=== PATIENT | female | born 1950 | race Caucasian/White ===

== ENCOUNTER 2018-08-09 06:01 | Inpatient (IN) | payer MEDICARE, OTHER ==
[2018-08-09] MEDS ORDERED: GELATIN SIZE 100 SPONGE (07:30)
[2018-08-09] MEDS ORDERED: BUPIVACAINE 0.5% (SDV) 30 ML INJ (07:30)
[2018-08-09] MEDS ORDERED: TOBRAMYCIN/DEXAMETH 2.5 ML OPH (07:31)
[2018-08-09] MEDS ORDERED: HEPARIN 1000 UNITS/ML 10 ML INJ ×3 (07:31→09:55)
[2018-08-09] MEDS ORDERED: THROMBIN 5000 UNIT VIAL (07:31)
[2018-08-09] MEDS ORDERED: MIDAZOLAM 1 MG/ML 2 ML INJ (08:00)
[2018-08-09] MEDS ORDERED: FENTAnyl 50 MCG/ML VIAL ×2 (08:16→10:36)
[2018-08-09] MEDS ORDERED: IODIXANOL LOCM 50 ML BTL (08:33)
[2018-08-09] MEDS ORDERED: IODIXANOL LOCM 100 ML BTL (08:33)
[2018-08-09] MEDS ORDERED: DIPHENHYDRAMINE 50 MG INJ (08:46)
[2018-08-09] MEDS ORDERED: HYDROCORTISONE 100 MG INJ (08:47)
[2018-08-09] MEDS: HEPARIN 10,000 UNITS/ML 1 ML INJ SC (08:48)
[2018-08-09] MEDS: IOHEXOL 350 100 ML BTL IV (08:48)
[2018-08-09] MEDS ORDERED: PROTAMINE 250 MG INJ (10:44)
[2018-08-09] MEDS ORDERED: CEFAZOLIN 1 GM INJ (11:04)
[2018-08-09] MEDS ORDERED: ROCURONIUM 50 MG INJ (11:04)
[2018-08-09] MEDS ORDERED: ETOMIDATE 20 MG INJ (11:04)
[2018-08-09] MEDS ORDERED: GLYCOPYRROLATE 0.4 MG INJ (11:04)
[2018-08-09] MEDS ORDERED: LIDOCAINE 2% (SDV) 5 ML INJ (11:04)
[2018-08-09] MEDS ORDERED: NEOSTIGMINE 3 MG/3 ML SYRINGE (11:04)
[2018-08-09] MEDS ORDERED: ONDANSETRON 4 MG INJ (11:05)
[2018-08-09] MEDS ORDERED: niCARdipine 50 MG in SOD CHLORIDE 0.9% 480 ML IV ×2 (11:30→14:00)
[2018-08-09] MEDS ORDERED: morphine (1 MG/ML) 10ML SYRINGE IV (11:30)
[2018-08-09] MEDS ORDERED: ALBUTEROL 0.083% (NEB) 2.5 MG/3 ML AMP HHN (11:30)
[2018-08-09] MEDS ORDERED: DIPHENHYDRAMINE 50 MG INJ IV (11:30)
[2018-08-09] MEDS ORDERED: EPHEDrine SULFATE 50 MG/5 ML SYG IV (11:30)
[2018-08-09] MEDS ORDERED: LABETALOL HCL 20MG INJ IV (11:30)
[2018-08-09] MEDS ORDERED: hydrALAzine 20 MG INJ IV (11:30)
[2018-08-09] MEDS ORDERED: ONDANSETRON 4 MG INJ IV (11:30)
[2018-08-09] MEDS: LACTATED RINGER'S 1,000 ML IV ×2 (12:16→21:13)
[2018-08-09] MEDS: morphine 2 MG INJ IV ×3 (13:14→21:13)
[2018-08-09] MEDS ORDERED: oxyCODONE 5 MG TAB PO (14:00)
[2018-08-09] MEDS: LOSARTAN 50 MG TAB PO (14:00)
[2018-08-09] MEDS ORDERED: FUROSEMIDE 40 MG TAB PO (14:00)
[2018-08-09] MEDS: PAROXETINE 10 MG TAB PO (15:37)
[2018-08-09] MEDS: AMLODIPINE 10 MG TAB PO (15:37)
[2018-08-09] MEDS: ALBUTEROL/IPRATROPIUM (NEB) 3 ML AMP HHN ×2 (17:03→20:36)
[2018-08-09] MEDS: GABAPENTIN 400 MG CAP PO (21:13)
[2018-08-10] MEDS: ZOLPIDEM 5 MG TAB PO (00:09)
[2018-08-10] MEDS: LACTATED RINGER'S 1,000 ML IV ×2 (04:30→06:12)
[2018-08-10] MEDS: morphine 2 MG INJ IV (05:35)
[2018-08-10 06:48] LABS: ADD MAN DIFF? NO
[2018-08-10 06:58] LABS: BASOPHILS % 0.6 % (0.0-2.0); EOSINOPHILS # 0.1 10^3/ul (0.0-0.5); EOSINOPHILS % 1.5 % (0.0-7.0); HEMATOCRIT 32.1 % (37.0-47.0); HEMOGLOBIN 10.1 g/dl (12.0-16.0); LYMPHOCYTES # 1.3 10^3/ul (0.8-2.9); LYMPHOCYTES % 19.7 % (15.0-51.0); MEAN CORPUSCULAR HEMOGLOBIN 25.1 pg (29.0-33.0); MEAN CORPUSCULAR HGB CONC 31.5 g/dl (32.0-37.0); MEAN CORPUSCULAR VOLUME 79.9 fl (82.0-101.0); MEAN PLATELET VOLUME 12.2 fl (7.4-10.4); MONOCYTE # 0.6 10^3/ul (0.3-0.9); MONOCYTES % 8.6 % (0.0-11.0); NEUTROPHIL # 4.7 10^3/ul (1.6-7.5); NEUTROPHILS % 69.5 % (39.0-77.0); PLATELET COUNT 196 10^3/UL (140-415); RED BLOOD COUNT 4.02 10^6/ul (4.20-5.40); RED CELL DISTRIBUTION WIDTH 17.9 % (11.5-14.5)
[2018-08-10 06:58] LABS: WHITE BLOOD COUNT 6.7 10^3/ul (4.8-10.8)
[2018-08-10 07:39] LABS: ANION GAP 10 (5-13); BLOOD UREA NITROGEN 17 mg/dl (7-20); CALCIUM 8.7 mg/dl (8.4-10.2); CARBON DIOXIDE 22 mmol/L (21-31); CHLORIDE 110 mmol/L (97-110); CREATININE 0.53 mg/dl (0.44-1.00); Estimated GFR > 60 mL/min (>60); GLUCOSE 80 mg/dl (70-220); PHOSPHORUS 3.1 mg/dl (2.5-4.9); POTASSIUM 4.1 mmol/L (3.5-5.1); SODIUM 142 mmol/L (135-144)
[2018-08-10] MEDS: AMLODIPINE 10 MG TAB PO (09:00)
[2018-08-10] MEDS: ALBUTEROL/IPRATROPIUM (NEB) 3 ML AMP HHN (09:08)
[2018-08-10] MEDS: GABAPENTIN 400 MG CAP PO (09:10)
[2018-08-10] MEDS: LOSARTAN 50 MG TAB PO (09:10)
[2018-08-10] MEDS: PAROXETINE 10 MG TAB PO (09:11)
[2018-08-10] MEDS: HYDROmorphONE 2 MG TAB PO (09:11)
[2018-08-10] MEDS: DOCUSATE SODIUM 100 MG CAP PO (12:27)
== END 2018-08-10 13:20 | disposition home or self-care (01) | DRG 269 ==
LOC: REC 06:01 → ICU 11:18
PROC: 04V03D6 (ICD-10-PCS; principal; 2018-08-09 08:00)
PROC: B410YZZ Fluoroscopy of Abdominal Aorta using Other Contrast (ICD-10-PCS; 2018-08-09 08:00)
PROC: B440ZZ3 Ultrasonography of Abdominal Aorta, Intravascular (ICD-10-PCS; 2018-08-09 08:00)
DX: I71.4 Abdominal aortic aneurysm, without rupture (principal); E66.01 Morbid (severe) obesity due to excess calories; E78.5 Hyperlipidemia, unspecified; G89.29 Other chronic pain; I73.9 Peripheral vascular disease, unspecified; I10 Essential (primary) hypertension; J44.9 Chronic obstructive pulmonary disease, unspecified; M19.90 Unspecified osteoarthritis, unspecified site; M48.061 Spinal stenosis, lumbar region without neurogenic claudication; M54.9 Dorsalgia, unspecified; Z68.31 Body mass index [BMI] 31.0-31.9, adult; Z87.891 Personal history of nicotine dependence
CPT/HCPCS: 71045; 75630; 80048; 83735; 84100; 85025; 86850; 86900; 86901; 86920; 87081; 94640; 94664

== ENCOUNTER → 2019-03-04 | Outpatient (CLI) | payer MEDICARE, OTHER | END | disposition home or self-care (01) | LOC: EKG 14:48 | DX: R07.9 Chest pain, unspecified (principal) | CPT/HCPCS: 93005 ==

== ENCOUNTER → 2019-03-10 | Outpatient (CLI) | payer MEDICARE, OTHER | END | disposition home or self-care (01) | LOC: C/S 10:32 | DX: R51 Headache (principal); M54.2 Cervicalgia | CPT/HCPCS: 70450; 70490 ==